=== PATIENT | female | born 1990 | race Caucasian/White ===

== ENCOUNTER 2017-09-02 15:20 | Emergency (ER) | payer OTHER, MEDICAID ==
[~2017-09-02] VITALS: Ht 162.6 cm; Wt 74.4 kg
[~2017-09-02 15:20] MED LIST: ACETAMINOPHEN-1 EAC1 PO; CIPRO500 MG PO; CIPROFLOXACIN500 M3 PO; CLEOCIN HCL150 MG PO; FLAGYL500 MG PO; IBUPROFEN 800800 M1 PO; PHENERGAN 25 MG25 M1 PO; PRENATAL; TRAMADOL 50 MG50 MG PO
[2017-09-02] MEDS ORDERED: ZPAK PO (15:50)
[2017-09-02] MEDS ORDERED: ANTIVERT25 MG PO (15:50)
[2017-09-02] MEDS ORDERED: IBUPROFEN 800800 M1 PO (15:50)
[2017-09-02] MEDS ORDERED: TYLENOL EXTRA500 MG PO (15:50)
[2017-09-02 16:21] VITALS: BP 114/71
== END 2017-09-02 16:21 | disposition home or self-care (01) ==
LOC: M.ERS 15:20
DX: R51 Headache (principal); H66.92 Otitis media, unspecified, left ear; Z98.890 Other specified postprocedural states; Z88.1 Allergy status to other antibiotic agents; Z88.8 Allergy status to other drugs, medicaments and biological substances